=== PATIENT | male | born 1965 | race Caucasian/White ===

== ENCOUNTER → 2016-07-17 | Outpatient (CLI) | payer OTHER | LOC: FCPNEURO 20:30 | PROVIDERS: ATTEND Psychiatry & Neurology Sleep Medicine | DX: G47.33 Obstructive sleep apnea (adult) (pediatric) (principal) ==

== ENCOUNTER 2016-10-09 18:07 | Observation (INO) | payer OTHER ==
[2016-10-09] MEDS ORDERED: NS 1,000 ML IV ONE (18:54)
[2016-10-09] MEDS ORDERED: ONDANSETRON 4 MG/2 ML VIAL IVP ONE (18:54)
[2016-10-09] MEDS ORDERED: HYDROmorphONE/DILAUDID 1 MG/ML SYR IVP ONE ×2 (18:54→20:08)
--- NOTE | 2016-10-09 18:58 | EDPHY ---
H & P Time Seen by Provider: 10/09/16 18:33 HPI/ROS: CHIEF COMPLAINT: "I am dehydrated" HISTORY OF PRESENT ILLNESS: Patient is a 51-year-old male who presents emergency department with multiple complaints. The patient states he had a typical migraine yesterday. When he woke from his migraine he states that he was "a mess." Patient states he has been feeling lightheaded and dizzy. He was concerned he is dehydrated. He has had mild left lower quadrant discomfort. He has had nausea with dry heaves. No vomiting. No diarrhea. Patient went saw his primary care physician, Dr. Coreas. There he had a mild fever per report. He was sent to the emergency department for further evaluation. Patient states he has a mild headache at this time. This is different from his typical migraine headache. It is much less severe. Patient has had no dysuria frequency. No cough or shortness of breath. REVIEW OF SYSTEMS: My complete review of systems is negative except as mentioned in the HPI. Past Medical/Surgical History: Includes hypertension, obesity, migraines Past surgical history: Includes hip surgery Social history: Patient does not smoke. Smoking Status: Never smoked Physical Exam: Vitals noted GENERAL: No acute distress, alert. HEENT: Eyes normal to inspection, normal pharynx, no signs of dehydration. No sinus tenderness palpation. NECK: No thyromegaly, no lymphadenopathy, supple. RESPIRATORY: Clear to auscultation bilaterally, no rales, rhonchi or wheezing. CVS: Regular rate and rhythm, no rubs, murmurs, or gallops. ABDOMEN: Soft, mild left lower quadrant tenderness palpation with no rebound or guarding, nondistended, no organomegaly. BACK: Normal to inspection, no CVA tenderness. SKIN: Normal color, no rash, warm, dry. No pallor. EXTREMITIES: No pedal edema, no calf tenderness, no Homans sign or cords, no joint swelling. NEURO/PSYCH: Higher functions: Alert and Oriented x3. Normal speech and cognition. Normal mood and affect. Cranial nerves: Normal as tested. Cerebellar: Normal as tested. Good finger to nose, good [id number], normal gait. Peripheral exam: [Normal motor exam. Normal sensation. Constitutional: Initial Vital Signs Temperature (C) 37.3 C 10/09/16 18:17 Heart Rate 83 10/09/16 18:17 Respiratory Rate 18 10/09/16 18:17 Blood Pressure 156/116 H 10/09/16 18:17 O2 Sat (%) 94 10/09/16 18:17 O2 Delivery Mode Room Air Allergies/Adverse Reactions: No Known Allergies Allergy (Unverified 10/09/16 18:16) Home Medications: Medication Instructions Recorded Arimidex 1 mg (*) 10/09/16 Bystolic 10/09/16 Modafinil 10/09/16 VITAMIN D 10/09/16 Wellbutrin Sr 10/09/16 Medical Decision Making - Diagnostics Imaging Results: Imaging Impressions Abdomen CT 10/09/16 18:54 Impression: 1. No explanation for acute left-sided abdominal pain. 2. Right hydronephrosis due to an aggregate of calculi at the ureteropelvic junction. 3. Cholelithiasis. No evidence of common bile duct stone. 4. Hepatic steatosis. 5. Right-sided Spigelian hernia containing only fat. Findings discussed with Emergency Department physician, Dr. Sherrie Bui on October 09, [address] 10/09/16 20:09 Impression: Normal brain. No intracranial hemorrhage or acute process. Findings discussed with Emergency Department physician, Sherrie Bui M.D. , on October 09, 2016 at 2033. ED Course/Re-evaluation: In the emergency department I discussed possible etiologies with the patient. I answered all his questions. An IV was placed. Patient given normal saline 1 L IV for hydration. Laboratory studies were ordered. The patient had a CT scan with IV contrast for his left lower quadrant pain and vomiting. The patient was given Dilaudid 0.5 mg IV and Zofran 4 mg IV. I reviewed the patient's laboratory studies. His CBC showed a mildly elevated white count of 11. His anion gap is mildly elevated. His chemistry panel is otherwise unremarkable. Abdomen and pelvis CT: Please refer the dictated report by Dr. Wheeler. The patient has a noted obstructing ureteral stone on the right. Fatty right liver. No abnormalities in the left lower quadrant. I discussed the results with the patient. On re-evaluation he denies abdominal pain. He had no right upper quadrant or right flank pain. He continued to complain of a headache. Because of this CT of his head was ordered. He was given Dilaudid 1 mg IV and Solu-Medrol 125 mg IV. Discussed the plan with the patient and answered all his questions. Head CT: No acute disease noted. Please refer the dictated report by Dr. Eduardo Wheeler. I rechecked the patient while here. Patient had no focal neurologic deficits. I discussed his results. Patient continues to have a headache. I rechecked his temperature and it was 37.6. Because the patient has headachthat is different from his previous migraines and a temperature noted by his primary care physician (as well as a temperature of 37.6degrees) he will undergo lumbar puncture to rule out meningitis. I discussed this at length with the patient. I answered all his questions. Patient states that he has had lumbar puncture previously and had injections in his spine. This is required fluoroscopy and the past. On exam the patient is obese. I discussed the case with Dr. Wheeler who will perform the the lumbar puncture. CSF fluid studies were ordered. I discussed case with Dr. Poole. She will admit the patient. Differential Diagnosis: My differential includes but is not limited to small-bowel obstruction, perforation, colitis, diverticulitis, migraine, subarachnoid hemorrhage, subdural hematoma, epidural hematoma, electrolyte abnormality, sugar abnormality , dehydration, meningitis - Data Points Laboratory Results: Laboratory Results 10/09/16 18:30 10/09/16 18:30 10/09/16 10/09/16 18:30 18:30 WBC 11.03 10^3/uL H 10^3/uL (3.80-9.50) RBC 4.94 10^6/uL 10^6/uL (4.40-6.38) Hgb 15.2 g/dL g/dL (13.7-17.5) Hct 43.9 % % (40.0-51.0) MCV 88.9 fL fL (81.5-99.8) MCH 30.8 pg pg (27.9-34.1) MCHC 34.6 g/dL g/dL (32.4-36.7) RDW 13.5 % % (11.5-15.2) Plt Count 221 10^3/uL 10^3/uL (150-400) MPV 10.1 fL fL (8.7-11.7) Neut % (Auto) 83.6 % H % (39.3-74.2) Lymph % (Auto) 9.6 % L % (15.0-45.0) Woodward % (Auto) 5.6 % % (4.5-13.0) Eos % (Auto) 0.1 % L % (0.6-7.6) Baso % (Auto) 0.7 % % (0.3-1.7) Nucleat RBC Rel Count 0.0 % % (0.0-0.2) Absolute Neuts (auto) 9.22 10^3/uL H 10^3/uL (1.70-6.50) Absolute Lymphs (auto) 1.06 10^3/uL 10^3/uL (1.00-3.00) Absolute Monos (auto) 0.62 10^3/uL 10^3/uL (0.30-0.80) Absolute Eos (auto) 0.01 10^3/uL L 10^3/uL (0.03-0.40) Absolute Basos (auto) 0.08 10^3/uL 10^3/uL (0.02-0.10) Absolute Nucleated RBC 0.00 10^3/uL 10^3/uL (0-0.01) Immature Gran % 0.4 % % (0.0-1.1) Immature Gran # 0.04 10^3/uL 10^3/uL (0.00-0.10) Sodium 141 mEq/L mEq/L (134-144) Potassium 4.0 mEq/L mEq/L (3.5-5.2) Chloride 102 mEq/L mEq/L (97-110) Carbon Dioxide 22 mEq/l mEq/l (22-31) Anion Gap 17 mEq/L H mEq/L (8-16) BUN 14 mg/dL mg/dL (7-23) Creatinine 1.2 mg/dL mg/dL (0.7-1.3) Estimated GFR > 60 Glucose 101 mg/dL H mg/dL (70-100) Calcium 9.6 mg/dL mg/dL (8.5-10.4) Total Bilirubin 1.1 mg/dL mg/dL (0.1-1.4) Conjugated Bilirubin 0.4 mg/dL mg/dL (0.0-0.5) Unconjugated Bilirubin 0.7 mg/dL mg/dL (0.0-1.1) AST 27 IU/L IU/L (17-59) ALT 51 IU/L IU/L (21-72) Alkaline Phosphatase 61 IU/L IU/L (38-126) Total Protein 7.5 g/dL g/dL (6.3-8.2) Albumin 4.5 g/dL g/dL (3.5-5.0) Lipase 38.0 IU/L IU/L (23-300) Medications Given: Discontinued Medications Acetaminophen (Tylenol) 1,000 mg PO EDNOW ONE Stop: 10/09/16 20:46 Last Admin: 10/09/16 20:49 Dose: 1,000 mg Hydromorphone HCl (Dilaudid) 0.5 mg IVP EDNOW ONE Stop: 10/09/16 18:55 Last Admin: 10/09/16 19:06 Dose: 0.5 mg Hydromorphone HCl (Dilaudid) 1 mg IVP EDNOW ONE Stop: 10/09/16 20:09 Last Admin: 10/09/16 20:18 Dose: 1 mg Sodium Chloride (Ns) 1,000 mls @ 0 mls/hr IV EDNOW ONE; Wide Open PRN Reason: Protocol Stop: 10/09/16 18:55 Last Admin: 10/09/16 19:06 Dose: 1,000 mls Ketorolac Tromethamine (Toradol) 30 mg IVP EDNOW ONE Stop: 10/09/16 20:10 Last Admin: 10/09/16 20:23 Dose: 30 mg Methylprednisolone Sodium Succinate (Solu-Medrol) 125 mg IVP EDNOW ONE Stop: 10/09/16 20:09 Last Admin: 10/09/16 20:23 Dose: 125 mg Ondansetron HCl (Zofran) 4 mg IVP EDNOW ONE Stop: 10/09/16 18:55 Last Admin: 10/09/16 19:07 Dose: 4 mg Departure - Departure Disposition: [facility] Clinical Impression: Abdominal pain Qualifiers: Abdominal location: left lower quadrant Qualified Code(s): R10.32 - Left lower quadrant pain Headache Qualifiers: Headache type: unspecified Headache chronicity pattern: acute headache Intractability: not intractable Qualified Code(s): R51 - Headache Fever Qualifiers: Encounter type: initial encounter Condition: Good Instructions: Acute Headache (ED), Abdominal Pain (ED) Referrals: STERLING SIMPSON [Primary Care Provider] - 5-7 days, call for appt.
[2016-10-09 18:59] LABS: % IMMATURE GRANULYOCYTES 0.4 % (0.0-1.1); ABSOLUTE IMMATURE GRANULOCYTES 0.04 10^3/uL (0.00-0.10); ADD DIFF? NO; ADD MORPH? NO; ADD SCAN? NO; ATYPICAL LYMPHOCYTE FLAG 0 (0-99); FRAGMENT RBC FLAG 0 (0-99); HEMATOCRIT 43.9 % (40.0-51.0); HEMOGLOBIN 15.2 g/dL (13.7-17.5); LEFT SHIFT FLG 0 (0-99); LIPEMIA HEMOLYSIS FLAG 90 (0-99); MEAN CELL HEMOGLOBIN 30.8 pg (27.9-34.1); MEAN CELL HEMOGLOBIN CONCENTR. 34.6 g/dL (32.4-36.7); MEAN CELL VOLUME 88.9 fL (81.5-99.8); MEAN PLATELET VOLUME 10.1 fL (8.7-11.7); PLATELET CLUMPS FLAG 0 (0-99); PLATELET COUNT 221 10^3/uL (150-400); RED BLOOD CELL COUNT 4.94 10^6/uL (4.40-6.38); RED CELL DISTRIBUTION WIDTH 13.5 % (11.5-15.2)
[2016-10-09] MEDS ORDERED: IOPAMIDOL (ISOVUE-300) 100 ML BTL ONE (18:59)
[2016-10-09 19:06] LABS: ALANINE AMINOTRANSFERASE 51 IU/L (21-72); ALBUMIN 4.5 g/dL (3.5-5.0); ALKALINE PHOSPHATASE 61 IU/L (38-126); ANION GAP 17 mEq/L (8-16); ASPARTATE AMINOTRANSFERASE 27 IU/L (17-59); BILIRUBIN,TOTAL 1.1 mg/dL (0.1-1.4); BILIRUBIN-CONJUGATED 0.4 mg/dL (0.0-0.5); BILIRUBIN-UNCONJUGATED 0.7 mg/dL (0.0-1.1); CALCIUM 9.6 mg/dL (8.5-10.4); CARBON DIOXIDE 22 mEq/l (22-31); CHLORIDE 102 mEq/L (97-110); CREATININE 1.2 mg/dL (0.7-1.3); GLOMERULAR FILTRATION RATE > 60; GLUCOSE 101 mg/dL (70-100); SODIUM 141 mEq/L (134-144); TOTAL PROTEIN 7.5 g/dL (6.3-8.2)
[2016-10-09] MEDS ORDERED: methylPREDNISolone SOD SUCC 125 MG/2 ML VIAL IVP ONE (20:08)
[2016-10-09] MEDS ORDERED: KETOROLAC 30 MG/1 ML SDV IVP ONE (20:09)
[2016-10-09] MEDS ORDERED: ACETAMINOPHEN 500 MG TAB PO ONE (20:45)
[2016-10-09] MEDS ORDERED: LIDOCAINE 1% 300 MG/30 ML SDV ONE (20:55)
[2016-10-09 21:28] LABS: INR 1.09 (0.83-1.16)
[2016-10-09 22:34] LABS: COLOR YELLOW; LEUKOCYTE ESTERASE,URINE NEGATIVE (NEGATIVE); NITRITE,URINE NEGATIVE (NEGATIVE)
[2016-10-09] MEDS ORDERED: ACETAMINOPHEN 325 MG TAB PO PRN (23:25)
[2016-10-09] MEDS ORDERED: ONDANSETRON DISINTEGRATING 4 MG TAB PO PRN (23:25)
[2016-10-09] MEDS ORDERED: ONDANSETRON 4 MG/2 ML VIAL IVP PRN (23:25)
[2016-10-09] MEDS ORDERED: HYDROmorphONE/DILAUDID 1 MG/ML SYR IVP PRN (23:25)
[2016-10-09] MEDS ORDERED: MODAFINIL 100 MG TAB PO PRN (23:26)
[2016-10-09] MEDS ORDERED: NS 1,000 ML IV SCH (23:30)
--- NOTE | 2016-10-10 00:20 | GHP ---
[f rep st] HISTORY AND PHYSICAL DATE OF ADMISSION: 10/09/2016 The patient is a pleasant 51-year-old gentleman with a history of obesity and obstructive sleep apne a who presents with headache. He has a typical migraine headache, which is a sharp pain behind his left eye associated with some nausea and vomiting. He had it yesterday and took Imitrex. His migra yahaira are somewhat rare. Today he woke up with a bandlike pressure around his head. This new headac he syndrome for him. He had some dry heaves as well. He also had subjective fevers. He has had no abdominal complaints, no urgency, frequency, or dysuria. He notes some swelling on the left side o f his face near his jaw line. He does not have a stiff neck. He did have some vertiginous-like sym ptoms where he felt "dizzy" and was unsteady on his feet. There was no sided to this. He did not h ave left-sided or right-sided weakness. Denies slurred speech. He has not noticed foul breath. He has no bad teeth. When I see the patient, he is diaphoretic and appears to have just defervesced, although there is no fever recorded here in the emergency departm ent. It sounds like he may have seen his primary care physician where he was febrile there. He does have a history of nephrolithiasis. He has not seen hematuria or had urgency, frequency, dys uria, flank pain of late. REVIEW OF SYSTEMS: Complete 10-point review of systems conducted, negative except as noted in the H PI. PAST MEDICAL HISTORY: 1. Hyperparathyroidism. 2. High estrogen for which he takes Arimidex. He has seen Dr. Earnest Barillas in the past for this. 3. Hypertension. 4. Obstructive sleep apnea. ALLERGIES: No known drug allergies. HOME MEDICATIONS: Anastrozole, bupropion, vitamin D3, modafinil, and nebivolol. SOCIAL HISTORY: No tobacco. Rare alcohol. FAMILY HISTORY: Reviewed and unremarkable. PHYSICAL EXAM: VITAL SIGNS: Temp 37.1, blood pressure 122/70, pulse in the 60s, breathing 18 per m inute, 96% on 2 L. GENERAL: No acute distress. Diaphoretic. HEENT: Sclerae anicteric. Orophary nx clear. Mucous membranes are moist. His oropharynx is clear. There is a firm either lymph node or parotid gland that is at the angle of his jaw, perhaps a bit superior to that. There is no fluct uance. I cannot express pus from Stensen's duct. NECK: Supple without lymphadenopathy or JVD. LUTHER NGS: Clear to auscultation bilaterally. HEART: S1, S2. ABDOMEN: Soft, nontender, nondistended. LOWER EXTREMITIES: No edema. Calves are nontender. SKIN: Without rash. NEUROLOGIC: Nonfocal. LABORATORY DATA: INR is 1.09. White count 11 with a left shift, hematocrit is 44, platelets are 22 1,000. Sodium 141, potassium 4.0, chloride 102, bicarb 22, BUN 14, creatinine 1.2. LFTs normal. L ipase normal. UA is unremarkable. Head CT shows normal brain. Abdominal CT, reviewed and interpreted by me, shows nephrolithiasis on the right with a 6 x 5 x 8 mm stone with mild right hydronephrosis, as well as nonobstructing calcul i in the left intrarenal collecting system. He has hepatic steatosis, right-sided spigelian hernia containing only fat. I discussed the case with Dr. Sherrie Bui. ASSESSMENT/PLAN: This is a 51-year-old gentleman presenting with a headache, left-sided pain. 1. Question parotiditis. The patient has a mass in the left side and fever. This could be consist ent with parotiditis. I do not see is not classic so we are going to get a CAT scan of h is face rule out and to evaluate. Alternatively, this could be a lymph node. 2. We will hold antibiotics until we get the results of these CAT scans back. 3. Question meningitis. The patient has a supple neck without lymphadenopathy. He is alert and or iented. I think it is reasonable to forego lumbar puncture. This was ordered, but refused, in the emergency department. I think this is a safe decision. 4. Nephrolithiasis. He has a large stone on the right. This probably will require operative manag ement. I am not going to give him Flomax because I think it is just too big to pass on its own. Hi s creatinine is on the high side of normal and there is no prior for comparison, but I suspect this stone has been there for a great period of time and outpatient urologic followup should happen. 5. Hypertension. Continue his Bystolic. 6. Migraines. We will follow. 7. Disposition. Observation status. 8. Prophylaxis. Low molecular weight heparin. /[id number]/MODL
[2016-10-10 05:26] LABS: % IMMATURE GRANULYOCYTES 0.5 % (0.0-1.1); ABSOLUTE IMMATURE GRANULOCYTES 0.04 10^3/uL (0.00-0.10); ADD DIFF? NO; ADD MORPH? NO; ADD SCAN? NO; ATYPICAL LYMPHOCYTE FLAG 0 (0-99); FRAGMENT RBC FLAG 0 (0-99); HEMATOCRIT 42.3 % (40.0-51.0); HEMOGLOBIN 14.6 g/dL (13.7-17.5); LEFT SHIFT FLG 0 (0-99); LIPEMIA HEMOLYSIS FLAG 90 (0-99); MEAN CELL HEMOGLOBIN CONCENTR. 34.5 g/dL (32.4-36.7); MEAN CELL VOLUME 89.8 fL (81.5-99.8); PLATELET CLUMPS FLAG 10 (0-99); PLATELET COUNT 197 10^3/uL (150-400); RED BLOOD CELL COUNT 4.71 10^6/uL (4.40-6.38); RED CELL DISTRIBUTION WIDTH 13.2 % (11.5-15.2)
[2016-10-10 05:44] LABS: ANION GAP 12 mEq/L (8-16); CALCIUM 9.2 mg/dL (8.5-10.4); CARBON DIOXIDE 22 mEq/l (22-31); CHLORIDE 108 mEq/L (97-110); CREATININE 1.2 mg/dL (0.7-1.3); GLOMERULAR FILTRATION RATE > 60; GLUCOSE 160 mg/dL (70-100); POTASSIUM 4.3 mEq/L (3.5-5.2); SODIUM 142 mEq/L (134-144)
[2016-10-10] MEDS ORDERED: ENOXAPARIN 40 MG/0.4 ML SYR SC SCH (09:00)
[2016-10-10] MEDS ORDERED: Herbals/Supplements -Info Only PO SCH (09:00)
[2016-10-10] MEDS ORDERED: NEBIVOLOL HCL 5 MG TAB PO SCH (09:00)
[2016-10-10] MEDS ORDERED: ANASTROZOLE 1 MG TAB PO SCH (09:00)
[2016-10-10] MEDS ORDERED: buPROPion SR 150 MG TAB PO SCH (09:00)
[2016-10-10] MEDS ORDERED: LORazepam 2 MG/ML INJ IVP ONE (09:41)
[2016-10-10 15:32] VITALS: BP 144/87; PULSE 68; RESP 15; TEMP 97.7; O2SAT 94
--- NOTE | 2016-10-10 21:03 | GDS ---
[f rep st] DISCHARGE SUMMARY DISCHARGE DIAGNOSES: 1. Migraine headaches. 2. Large right ureteral calculus with mild hydronephrosis. 3. Possible parotiditis. 4. History of hyperparathyroidism. 5. Hypertension. 6. History of high estrogen. 7. Obstructive sleep apnea. HISTORY: This is a 51-year-old male presenting with a headache, dizziness, and some facial pain. HOSPITAL COURSE: The patient did have a swollen parotid gland on the left and a little bit on the r ight. He had abdominal CT scan which did not show anything acute, but did show a fairly large kidney stone with a little bit of obstruction. This is most likely chronic. The day, he felt a good amount better. He had a head CT which was negative. An MRI was ordered, but since he was feeling better, we discharged him home. He can follow up with his primary care do ctor, and he also needs to follow up with Urology. /[id number]/MODL
[2016-10-12 17:34] LABS: MUMPS IGG INDEX VALUE <0.2; MUMPS IGM ANTIBODY NEGATIVE (Negative); MUMPS IGM INDEX VALUE 0.71 (0.00-0.79)
[2016-10-15] MEDS ORDERED: ERGOCALCIFEROL 50,000 I.UNIT CAP PO SCH (09:00)
== END 2016-10-10 17:53 | disposition home or self-care (01) ==
LOC: F1N 22:09
PROVIDERS: ADMIT Internal Medicine; ATTEND Internal Medicine
DX: G43.909 Migraine, unspecified, not intractable, without status migrainosus (principal); N20.1 Calculus of ureter; N13.0 Hydronephrosis with ureteropelvic junction obstruction; I10 Essential (primary) hypertension; K76.0 Fatty (change of) liver, not elsewhere classified; G47.33 Obstructive sleep apnea (adult) (pediatric); K80.20 Calculus of gallbladder without cholecystitis without obstruction; E21.3 Hyperparathyroidism, unspecified
CPT/HCPCS: 70450; 74177; G0378; 86735-90; 96374; J1170; J1650; J1885; J2405; Q9967

== ENCOUNTER 2016-10-11 23:01 | Emergency (ER) | payer OTHER ==
[2016-10-11 23:17] VITALS: TEMP 98.2
[2016-10-11] MEDS ORDERED: CLINDAMYCIN 600 MG/DEXTROSE 50 ML IV ONE (23:35)
--- NOTE | 2016-10-11 23:42 | EDPHY ---
H & P Stated Complaint: facial swelling; recently DC'd from this hospital Time Seen by Provider: 10/11/16 23:21 HPI/ROS: HPI The patient presents with right-sided facial swelling which began this morning when he awoke and has gotten progressively worse throughout the course of the day and has been constant. It is associated with pain and a sensation of warmth. He notes that slightly difficult to look to the left and right because of pain. He also has some pain in his teeth, he denies any ear pain. He has not had any fevers or chills but generally feels somewhat drained. He was admitted to the hospital from October 09 to October 10 for a headache, he has a history of migraines so this felt different. He had a CT scan of his brain that was unremarkable. He also had a CT scan of his abdomen which revealed kidney stones. There was some question if he had left-sided parotiditis. He felt better while in the hospital, thus was discharged home. REVIEW OF SYSTEMS Constitutional: No fever, no chills. Eyes: No discharge. ENT: No sore throat. Cardiovascular: No chest pain, no palpitations. Respiratory: No cough, no shortness of breath. Gastrointestinal: No abdominal pain, no vomiting. Genitourinary: No hematuria. Musculoskeletal: No back pain. Skin: No rashes. Neurological: Positive for headache. PMHx: Recent hospitalization for headache, obstructive sleep apnea Soc Hx: Lives at home PHYSICAL General Appearance: Alert, no distress Eyes: Conjunctiva injection on the right, Pupils equal and round no pallor ENT, Mouth: Mucous membranes moist Respiratory: There are no retractions, lungs are clear to auscultation Cardiovascular: Regular rate and rhythm Gastrointestinal: Abdomen is soft and non-tender, no masses, bowel sounds normal Neurological: A&O, moves all extremities Skin: Right cheek is diffusely erythematous and edematous with central whitish discoloration with faint honey crust, Warm and dry Musculoskeletal: Neck is supple non tender Extremities: symmetrical, full range of motion Psychiatric: Patient is oriented X 3, there is no agitation Source: Patient, Old records Exam Limitations: No limitations - Personal History Current Tetanus/Diphtheria Vaccine: Unsure - Medical/Surgical History Hx Asthma: No Hx Chronic Respiratory Disease: No Hx Diabetes: No Hx Cardiac Disease: No Hx Renal Disease: Yes Hx Cirrhosis: No Hx Alcoholism: No Hx HIV/AIDS: No Hx Splenectomy or Spleen Trauma: No Other PMH: PMHx: migraines, HTN. PSHx: back and L hip surgery - Social History Smoking Status: Never smoked Constitutional: Initial Vital Signs Temperature (C) 36.8 C 10/11/16 23:12 Heart Rate 66 10/11/16 23:12 Respiratory Rate 17 10/11/16 23:12 Blood Pressure 168/102 H 10/11/16 23:12 O2 Sat (%) 94 10/11/16 23:12 O2 Delivery Mode Room Air Allergies/Adverse Reactions: No Known Allergies Allergy (Verified 10/09/16 21:13) Home Medications: Medication Instructions Recorded Anastrozole [Arimidex 1 mg (*)] 1 mg PO DAILY 10/09/16 Bupropion HCl [Bupropion HCl Sr] 150 mg PO DAILY 10/09/16 Ergocalciferol [Vitamin D2 (*)] 50,000 unit PO Q7D 10/09/16 Herbals/Supplements -Info Only 1 ea PO DAILY 10/09/16 Modafinil [Provigil] 200 mg PO DAILY PRN 10/09/16 Nebivolol HCl [Bystolic] 10 mg PO DAILY 10/09/16 Clindamycin HCl [Clindamycin] 450 mg PO QID #42 cap 10/12/16 Medical Decision Making - Diagnostics Imaging Results: Imaging Impressions Face CT 10/11/16 23:33 Impression: Inflammatory change on the right side of the nose and in the preseptal area of the right orbit with no intraorbital extension or associated findings to suggest abscess. Results called and discussed with Jenniffer Mcneal MD on 10/12/2016 at 0:45 Imaging: Discussed imaging studies w/ scallop binder Radiologist, I viewed and interpreted images myself Differential Diagnosis: This is a 51-year-old male with recent hospitalization for headache, CT scan of brain normal, who presents now with right-sided facial swelling and pain. Differential diagnosis includes impetigo, cellulitis, facial abscess, septal cellulitis. Plan for basic labs, antibiotics and CT scan of face to evaluate for any deep infection. In the emergency department, the patient received a dose of clindamycin IV. CT scan of max face showed superficial infection without any signs of septal cellulitis or abscess. I feel he likely has impetigo and is at risk for MR SA given his recent hospitalization. I will discharge him with a prescription for clindamycin. He has follow-up with his doctor next week. We have discussed return precautions. - Data Points Laboratory Results: Laboratory Results 10/11/16 23:45 10/11/16 23:45 10/11/16 10/11/16 10/11/16 23:45 23:45 23:45 WBC 7.97 10^3/uL 10^3/uL (3.80-9.50) RBC 4.58 10^6/uL 10^6/uL (4.40-6.38) Hgb 14.1 g/dL g/dL (13.7-17.5) POC Hgb 15.0 gm/dL gm/dL (13.7-17.5) Hct 41.2 % % (40.0-51.0) POC Hct 44 % % (40-51) MCV 90.0 fL fL (81.5-99.8) MCH 30.8 pg pg (27.9-34.1) MCHC 34.2 g/dL g/dL (32.4-36.7) RDW 13.7 % % (11.5-15.2) Plt Count 210 10^3/uL 10^3/uL (150-400) MPV 10.0 fL fL (8.7-11.7) Neut % (Auto) 64.1 % % (39.3-74.2) Lymph % (Auto) 22.6 % % (15.0-45.0) Andrews % (Auto) 9.4 % % (4.5-13.0) Eos % (Auto) 2.5 % % (0.6-7.6) Baso % (Auto) 1.0 % % (0.3-1.7) Nucleat RBC Rel Count 0.0 % % (0.0-0.2) Absolute Neuts (auto) 5.11 10^3/uL 10^3/uL (1.70-6.50) Absolute Lymphs (auto) 1.80 10^3/uL 10^3/uL (1.00-3.00) Absolute Monos (auto) 0.75 10^3/uL 10^3/uL (0.30-0.80) Absolute Eos (auto) 0.20 10^3/uL 10^3/uL (0.03-0.40) Absolute Basos (auto) 0.08 10^3/uL 10^3/uL (0.02-0.10) Absolute Nucleated RBC 0.00 10^3/uL 10^3/uL (0-0.01) Immature Gran % 0.4 % % (0.0-1.1) Immature Gran # 0.03 10^3/uL 10^3/uL (0.00-0.10) POC Sodium 142 mEq/L mEq/L (134-144) Sodium 144 mEq/L mEq/L (134-144) POC Potassium 3.9 mEq/L mEq/L (3.3-5.0) Potassium 4.3 mEq/L mEq/L (3.5-5.2) POC Chloride 104 mEq/L mEq/L (97-110) Chloride 110 mEq/L mEq/L (97-110) Carbon Dioxide 23 mEq/l mEq/l (22-31) Anion Gap 11 mEq/L mEq/L (8-16) POC BUN 26 mg/dL H mg/dL (7-23) BUN 24 mg/dL H mg/dL (7-23) Creatinine 1.3 mg/dL mg/dL (0.7-1.3) POC Creatinine 1.3 mg/dL mg/dL (0.7-1.3) Estimated GFR 58 Glucose 100 mg/dL mg/dL (70-100) POC Glucose 108 mg/dL H mg/dL (70-100) Calcium 9.3 mg/dL mg/dL (8.5-10.4) Medications Given: Discontinued Medications Clindamycin Phosphate/Dextrose (Cleocin 600 Mg (Premix)) 50 mls @ 100 mls/hr IV EDNOW ONE PRN Reason: Protocol Stop: 10/12/16 00:04 Last Admin: 10/12/16 00:02 Dose: 50 mls Point of Care Test Results: 10/11/16 23:45 POC Sodium 142 POC Potassium 3.9 POC Chloride 104 POC BUN 26 H POC Creatinine 1.3 POC Glucose 108 H Departure - Departure Disposition: Home, Routine, Self-Care Clinical Impression: Facial cellulitis Condition: Good Instructions: Cellulitis (ED) Referrals: STERLING SIMPSON [Primary Care Provider] - As per Instructions Prescriptions: Clindamycin HCl [Clindamycin] 450 mg PO QID #42 cap
[2016-10-12 00:04] LABS: % IMMATURE GRANULYOCYTES 0.4 % (0.0-1.1); ABSOLUTE IMMATURE GRANULOCYTES 0.03 10^3/uL (0.00-0.10); ADD DIFF? NO; ADD MORPH? NO; ADD SCAN? NO; ATYPICAL LYMPHOCYTE FLAG 0 (0-99); FRAGMENT RBC FLAG 0 (0-99); HEMATOCRIT 41.2 % (40.0-51.0); HEMOGLOBIN 14.1 g/dL (13.7-17.5); LEFT SHIFT FLG 0 (0-99); LIPEMIA HEMOLYSIS FLAG 90 (0-99); MEAN CELL HEMOGLOBIN 30.8 pg (27.9-34.1); MEAN CELL HEMOGLOBIN CONCENTR. 34.2 g/dL (32.4-36.7); PLATELET CLUMPS FLAG 10 (0-99); PLATELET COUNT 210 10^3/uL (150-400); RED BLOOD CELL COUNT 4.58 10^6/uL (4.40-6.38); RED CELL DISTRIBUTION WIDTH 13.7 % (11.5-15.2)
[2016-10-12] MEDS ORDERED: IOPAMIDOL (ISOVUE-300) 100 ML BTL ONE (00:14)
[2016-10-12 00:27] LABS: ANION GAP 11 mEq/L (8-16); CALCIUM 9.3 mg/dL (8.5-10.4); CARBON DIOXIDE 23 mEq/l (22-31); CHLORIDE 110 mEq/L (97-110); CREATININE 1.3 mg/dL (0.7-1.3); GLOMERULAR FILTRATION RATE 58; GLUCOSE 100 mg/dL (70-100); POTASSIUM 4.3 mEq/L (3.5-5.2); SODIUM 144 mEq/L (134-144)
[2016-10-12 01:06] VITALS: BP 152/67; PULSE 76; RESP 16; O2SAT 97
== END 2016-10-12 01:06 | disposition home or self-care (01) ==
DX: L03.211 Cellulitis of face (principal); I10 Essential (primary) hypertension
CPT/HCPCS: 82947-QW; 96365; Q9967

== ENCOUNTER 2017-03-07 13:14 | Day surgery (SDC) | payer OTHER ==
[2017-03-07] MEDS ORDERED: OXYMETAZOLINE 30 ML NASAL SPRAY ONE (13:22)
[2017-03-07] MEDS ORDERED: BACITRACIN ZINC 14.2 GM OINTTUBE TP ONE (13:22)
[2017-03-07] MEDS ORDERED: LIDOCAINE 1% 2 ML INJ ID PRN (13:26)
[2017-03-07] MEDS ORDERED: LIDOCAINE 1% 300 MG/30 ML SDV ONE ×2 (13:27→14:21)
[2017-03-07] MEDS ORDERED: LR 1,000 ML IV ONE (13:29)
[2017-03-07 14:09] VITALS: PULSE 57
[2017-03-07] MEDS ORDERED: fentaNYL 250 MCG/5 ML INJ ONE (14:26)
[2017-03-07] MEDS ORDERED: PROPOFOL 200 MG/20 ML VIAL ONE (14:27)
[2017-03-07] MEDS ORDERED: ROCURONIUM 50 MG/5 ML VIAL ONE ×2 (14:28→15:29)
--- NOTE | 2017-03-07 14:30 | PDHPUP ---
History & Physical Update H&P update statement: This history and physical update is based on an assessment of the patient which was completed after admission or registration (within 24 hours), but prior to the surgery/procedure. H&P update: H&P reviewed & patient examined, no change in patient's condition since H&P completed
[2017-03-07] MEDS ORDERED: COCAINE HCL 4% 4 ML BTL TP ONE (14:41)
[2017-03-07] MEDS ORDERED: DEXAMETHASONE 4 MG/ML VIAL ONE ×2 (15:30)
[2017-03-07] MEDS ORDERED: ONDANSETRON 4 MG/2 ML VIAL ONE (15:30)
[2017-03-07] MEDS ORDERED: ALBUTEROL 3 ML DEYVIAL IH PRN (16:34)
[2017-03-07] MEDS ORDERED: ONDANSETRON 4 MG/2 ML VIAL IVP PRN (16:34)
[2017-03-07] MEDS ORDERED: PROMETHAZINE HCL 25 MG/ML INJ IVP PRN (16:34)
[2017-03-07] MEDS ORDERED: NALOXONE HCL 0.4 MG/ML INJ IVP PRN (16:34)
[2017-03-07] MEDS ORDERED: HYDROmorphONE/DILAUDID 1 MG/ML INJ IVP PRN (16:34)
[2017-03-07] MEDS ORDERED: OXYCODONE/APAP 5/325 TAB PO PRN (16:34)
[2017-03-07] MEDS ORDERED: LABETALOL HCL 5 MG/ML 20 ML MDV IVP PRN (16:34)
--- NOTE | 2017-03-07 16:35 | PDANEPAE ---
ANE History of Present Illness Septoplasty ANE Past Medical History - Cardiovascular History Hx Hypertension: Yes - Pulmonary History Hx Oxygen in Use at Home: No Hx Sleep Apnea: Yes - Endocrine History Hx Diabetes: No - Chronic Pain History Chronic Pain: No ANE Review of Systems Review of Systems: ANE Patient History - Allergies Allergies/Adverse Reactions: No Known Allergies Allergy (Verified 10/09/16 21:13) - Home Medications Home Medications: Anastrozole [Arimidex 1 mg (*)] 1 mg PO DAILY 10/09/16 [Last Taken 03/07/17 08: 00] Bupropion HCl [Bupropion HCl Sr] 150 mg PO DAILY 10/09/16 [Last Taken 03/07/17 08:00] Ergocalciferol [Vitamin D2 (*)] 50,000 unit PO Q7D 10/09/16 [Last Taken 10/08/16 ] Herbals/Supplements -Info Only 1 ea PO DAILY 10/09/16 [Last Taken Unknown] Modafinil [Provigil] 200 mg PO DAILY PRN 10/09/16 [Last Taken 03/06/17] Nebivolol HCl [Bystolic] 10 mg PO DAILY 10/09/16 [Last Taken 03/07/17 08:00] - NPO status NPO Since - Liquids (Date): 03/07/17 NPO Since - Liquids (Time): 09:00 NPO Since - Solids (Date): 03/06/17 NPO Since - Solids (Time): 17:00 - Smoking Hx Smoking Status: Never smoked ANE Labs/Vital Signs - Vital Signs Blood Pressure: 118/69 Heart Rate: 57 Respiratory Rate: 13 O2 Sat (%): 100 Height: 187.96 cm Weight: 136.985 kg ANE Physical Exam - Airway Neck exam: FROM Mallampati Score: Class 2 Mouth exam: normal dental/mouth exam - Pulmonary Pulmonary: clear to auscultation - Cardiovascular Cardiovascular: regular rate and rhythym - ASA Status ASA Status: II ANE Anesthesia Plan Anesthesia Plan: general endotracheal anesthesia
--- NOTE | 2017-03-07 16:36 | POSTANESTH ---
Post Anesthetic Evaluation Cardiovascular Status: Normal, Stable Respiratory Status: Normal, Stable Level of Consciousness/Mental Status: Can Participate in Eval, Alert and Oriented Pain Control: Adequate, Prn Tx Ordered Nausea/Vomiting Control: Adequate, Prn Tx Ordered Complications Possibly Related to Anesthesia: None Noted
[2017-03-07] MEDS ORDERED: fentaNYL 100 MCG/2 ML INJ ONE (16:56)
[2017-03-07] MEDS: fentaNYL 100 MCG/2 ML INJ IVP PRN ×2 (16:57→17:10)
[2017-03-07] MEDS ORDERED: HYDROCODONE/APAP 5/325 TAB PO PRN (17:25)
[2017-03-07 17:28] VITALS: TEMP 97.7
[2017-03-07 18:09] VITALS: BP 130/85; RESP 15; O2SAT 95
--- NOTE | 2017-04-12 04:20 | GOP ---
[f rep st] OPERATIVE REPORT DATE OF OPERATION: 03/07/2017 SURGEON: Daniel Weiner MD ANESTHESIA: General. PREOPERATIVE DIAGNOSIS: Nasal obstruction secondary to septal deviation, inferior turbinate hypertro phy, and nasal valve collapse. POSTOPERATIVE DIAGNOSIS: Nasal obstruction secondary to septal deviation, inferior turbinate hypertr ophy, and nasal valve collapse. PROCEDURE PERFORMED: Endoscopic septoplasty, bilateral inferior turbinate submucosal resection and o utfracture, and bilateral ala erick grafts. FINDINGS: Obstructive nasal septal deviation, obstructive inferior turbinate hypertrophy, mild exter nal and significant internal valve collapse. SPECIMENS: None. ESTIMATED BLOOD LOSS: 10 mL. INDICATIONS: Patient was seen in outpatient clinic and found to have a nasal obstruction secondary t o septal deviation, turbinate hypertrophy, and nasal valve collapse that was not amenable to conserva tive therapy. Given his history and findings, he was determined to be an appropriate candidate for t he above-stated procedures. The risks, benefits, and alternatives to the procedures were explained a t length the patient who stated he understood and wished to go forward with the procedures. DESCRIPTION OF PROCEDURE: Patient was brought to the operating room by Anesthesiology and placed on the operating table. Once the appropriate level of anesthesia was achieved, bilateral nasal ala, sep seng, columella, and inferior turbinates were injected with 1% lidocaine with 1:100,000 epinephrine. Afrin-soaked pledgets were then placed bilaterally. The patient was then prepped and draped in usual fashion. The pledgets were then removed. The remainder of the procedure was performed under 0 degr ee rigid video endoscopic visualization. A left hemitransfixion incision was created with a needle-t ip Bovie electrocautery. The submucoperichondrial and submucoperiosteal elevation of the nasal septa l flap was completed with suction Laughlin and Tammi elevator. At the bony cartilaginous junction a ve rtical incision was created with the Tammi elevator. The contralateral mucosa was elevated off the bony septum with the suction Laughlin. A D knife was then used to incise the deviated portion of quadra ngular cartilage. 1 cm of dorsal and caudal columellar strut were left in place. The incised portio n of the quadrangular cartilage was elevated off the contralateral mucosa with a Harvey elevator. Th is was delivered with a Spring and set aside in normal saline. A straight [place] scissor was used t o create a cut in the superior portion of the bony septum. The remainder of the deviated bony septum was removed with a Spring. There was minimal bleeding in the surgical bed. Spring was used t o remove deviated portions of maxillary crest. The hemitransfixion incision was then closed using 2 interrupted 4-0 chromic sutures. Submucosal resection of bilateral inferior turbinates was performed. This was done in the usual [facility] ion with a turbinate microdebrider at the right inferior turbinate with a single anterior insertion s ite. This was repeated at the left, again, with the microdebrider and a single anterior insertion si te. There was good soft tissue reduction bilaterally. A Laughlin elevator was then used to infracture, then outfracture both inferior turbinates. There was good lateralization of the turbinates bilatera lly following this. On nasendoscopy, there was excellent visualization from the bilateral nasal vest ibule through to the nasopharynx. An incision was then made in the mucosa of the intranasal ala superiorly at the right and then at the left. Bilateral external ala were marked for the length and width of appropriate grafting material. This was then measured. The septal cartilage that had been removed was then cut into two 1.5 cm x 4 mm grafts. At the bilateral incision sites, a curved iris scissor was used to dissect from the int ranasal incision site laterally to the lateral aspect of the piriform aperture. This pocket was deve loped bilaterally. It was also developed anteriorly toward the nasal tip. The graft was placed with in this pocket at the right. There was good placement and the pocket held it firmly without movement . The incision was closed using a single 4-0 chromic suture. The graft placement was repeated at th e left with similar findings. The incision site was closed using a single 4-0 chromic suture. Nasal cavity was inspected for bleeding. There was only minimal ooze from the turbinates. Nasal cavity w as then irrigated and suctioned out. Bacitracin coated Cervantes splints were placed in bilateral nasal cavities and sutured in place with a single 3-0 Prolene suture. The patient tolerated these procedur es well and was extubated in the operating room prior to being transferred in good condition to the ostanesthesia care unit. COMPLICATIONS: None. /[id number]/MODL
== END 2017-03-07 19:10 | disposition home or self-care (01) ==
LOC: FSGY 13:14
PROVIDERS: ATTEND Otolaryngology
PROC: 09BM8ZZ Excision of Nasal Septum, Via Natural or Artificial Opening Endoscopic (ICD-10-PCS; principal; 2017-03-07 14:45)
PROC: 090 Ear, Nose, Sinus, Alteration (ICD-10-PCS; principal; 2017-03-07 14:45)
PROC: 095L8ZZ Destruction of Nasal Turbinate, Via Natural or Artificial Opening Endoscopic (ICD-10-PCS; principal; 2017-03-07 14:45)
DX: J34.2 Deviated nasal septum (principal); J34.3 Hypertrophy of nasal turbinates; J34.89 Other specified disorders of nose and nasal sinuses; R06.83 Snoring; I10 Essential (primary) hypertension; G47.30 Sleep apnea, unspecified
CPT/HCPCS: J0171; J1100; J2405; J2704; J3010